=== PATIENT | female | born 1950 ===

== ENCOUNTER 2022-07-20 16:19 | Inpatient (IN) | payer OTHER ==
[~2022-07-20] VITALS: Ht 149.9 cm; Wt 58.1 kg
[2022-07-21] MEDS ORDERED: COZAAR100 MG PO (09:56)
[2022-07-21] MEDS ORDERED: PREVAC PO (09:57)
[2022-07-21] MEDS ORDERED: ATIVAN2 M1 PO ×2 (09:58→09:59)
[2022-07-21] MEDS ORDERED: PROSAC PO (09:58)
[2022-07-21] MEDS ORDERED: ZOCOR40 MG PO (10:01)
[2022-07-26] MEDS ORDERED: FLUOXETINE HCL20 MG (09:26)
[2022-07-26] MEDS ORDERED: LANSOPRAZOLE30 MG (09:27)
[2022-07-26] MEDS ORDERED: ALLERGY RELIEF180 MG (09:27)
[2022-07-26] MEDS ORDERED: PRESERVISION A1 EAC1 (09:27)
[2022-07-26] MEDS ORDERED: MONTELUKAST SOD10 MG (09:27)
[2022-07-26] MEDS ORDERED: FLONASE16 GM (09:27)
[2022-07-26] MEDS ORDERED: TRELEGY ELLIPT1 EAC1 (09:27)
[2022-07-29] MEDS ORDERED: PERCOCET 5-3251 EACH PO (08:07)
[2022-07-29] MEDS ORDERED: ELIQUIS2.5 MG PO (08:07)
[2022-07-29] MEDS ORDERED: DUI500 PO (08:07)
== END 2022-07-29 18:01 | DRG 470 ==
LOC: SURG 07-26 06:00 → O/R 07-26 06:00 → SURH 07-26 08:30 → SURG 07-26 14:51
PROVIDERS: ADMIT Orthopaedic Surgery; ATTEND Orthopaedic Surgery
PROC: 0MNN0ZZ Release Right Knee Bursa and Ligament, Open Approach (ICD-10-PCS; 2022-07-26)
PROC: 0SRC0J9 Replacement of Right Knee Joint with Synthetic Substitute, Cemented, Open Approach (ICD-10-PCS; principal; 2022-07-26 11:00)
DX: M17.11 Unilateral primary osteoarthritis, right knee (principal); D62 Acute posthemorrhagic anemia; I10 Essential (primary) hypertension